=== PATIENT | male | born 1965 | race Two or more races ===

== ENCOUNTER 2022-08-17 03:21 | Emergency (ER) | payer BC, SELFPAY ==
--- NOTE | ~2022-08-17 | CT_ITS ---
EXAMINATION: CT CHEST WITHOUT CONTRAST CLINICAL INFORMATION: Chest pain. Question infiltrate. COMPARISON: Chest radiograph 08/17/2022. TECHNIQUE: Multidetector volumetric CT imaging of the chest was done. Axial MIP volume rendering provided. Sagittal and coronal reformatted images were obtained. This CT examination was performed using dose optimization techniques as appropriate, variously including the following: *Automated exposure control *Adjustment of mA and/or kV according to patient size (this includes techniques or standardized protocols for targeted exams where dose is matched to indication/reason for exam; i.e. extremities or head) *Use of iterative reconstruction technique DLP: 400 mGy-cm FINDINGS: Lungs and pleura: No focal pulmonary consolidation. No effusions or pneumothoraces. *3 mm noncalcified subpleural nodule within the peripheral left lung base (series 7 image 306) unchanged compared with 01/21/2019. *2 mm subpleural noncalcified pulmonary nodule peripheral left lung base (series 7 image image 285) unchanged compared with 01/21/2019. Per the Fleischner Society criteria, the above pulmonary nodules are benign in appearance and do not warrant additional imaging follow-up. No endobronchial lesions or peribronchial wall thickening noted. Mediastinum: The thyroid is partially included in the image [id number] and is normal in appearance. No lymphadenopathy. Normal caliber and contour of the thoracic aorta. Normal heart size. No pericardial thickening or pericardial fluid collections. CHEST WALL: No axillary lymphadenopathy. Internally visualized abdominal structures: Minimal reticulation of the small bowel mesenteric fat is present at the root of the small bowel mesentery. (Series 3 image 72). Scattered normal-sized mesenteric lymph nodes are present in the same region. The adrenal glands are normal in appearance. A 1 mm punctate calcification is present in the inferior right renal pelvis (series 3 image 74). A 1 mm punctate calcification is present in the interpolar section of the right kidney (series 3 image 69). Osseous structures: Moderate convex rightward curvature of the midthoracic spine is present. Multilevel confluent bridging endplate osteophytosis of the thoracic spine consistent with DISH is present. CT/CT chest wo IV con IMPRESSION: 1. Clear lungs. No focal pulmonary consolidation. No pleural effusions or pneumothoraces. 2. Minimal reticulation of the small bowel mesenteric fat with scattered normal-sized mesenteric lymph nodes in the same region. 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 3. Two punctate 1 mm nonobstructing calculi within the right kidney. 4. Moderate convex rightward curvature of the midthoracic spine. 5. Multilevel confluent bridging endplate osteophytosis of the thoracic spine consistent with DISH.
--- NOTE | ~2022-08-17 | XR_ITS ---
EXAMINATION: XR CHEST CLINICAL INFORMATION: Difficulty breathing COMPARISON: 12/31/2009 TECHNIQUE: Frontal view of the chest was obtained. FINDINGS: Lung volumes are symmetric. Mild opacity is noted at the medial right lung base. No evidence of pneumothorax, pleural effusion, or pulmonary edema. The cardiomediastinal contour is unremarkable. Redemonstrated dextroscoliosis of the lower thoracic spine. XR/XR chest 1V IMPRESSION: Mild medial right basilar opacity concerning for developing consolidation in the proper clinical setting. Radiographic followup after treatment/resolution of symptoms is recommended.
[2022-08-17 03:41] VITALS: BP 141/92; PULSE 63; RESP 20; TEMP 36.2; O2SAT 98; BMI 31.1
[2022-08-17 04:21] VITALS: BP 145/87; PULSE 65; RESP 17; TEMP 37; O2SAT 97
[2022-08-17 04:59] LABS: Influenza A PCR NEGATIVE (Negative); Influenza B PCR NEGATIVE (Negative); Resp Syncy Virus RNA Qual PCR NEGATIVE (Negative); SARS COV2 PCR INHOUSE NEGATIVE (Negative)
--- NOTE | 2022-08-17 05:11 | ECG_ITS ---
Test Reason : sob Blood Pressure : / mmHG Vent. Rate : 056 BPM Atrial Rate : 056 BPM P-R Int : 156 ms QRS Dur : 088 ms QT Int : 404 ms P-R-T Axes : 018 000 -01 degrees QTc Int : 389 ms Sinus bradycardia Minimal voltage criteria for LVH, may be normal variant ( R in aVL ) Borderline ECG No previous ECGs available Referred By: Neelam Ramos Electronically Signed By:Adalid Durham
[2022-08-17 05:34] LABS: Basophils Percent Auto 0.7 % (0-2); Eosinophils Absolute Auto 0.1 X10*3/uL (0.0-0.4); Eosinophils Percent Auto 2.2 % (0-4); Hematocrit 40.4 % (42.0-52.0); Hemoglobin 13.6 g/dl (14.0-18.0); Imm Gran Abs Auto 0.01 X10*3/uL (0.00-0.03); Imm Gran Pct Auto 0.2 % (0.0-0.4); Lymphocytes Absolute Auto 1.1 X10*3/uL (1.2-4.9); Lymphocytes Percent Auto 19.8 % (20-40); MANUAL DIFF FLAG NO; Mean Corpuscular HGB Conc 33.7 g/dl (31.0-36.0); Mean Corpuscular Hemoglobin 29.2 pg (27.0-33.0); Mean Corpuscular Volume 86.9 fL (80.0-98.0); Mean Platelet Volume 10.2 fL (9.4-12.4); Monocytes Absolute Auto 0.3 X10*3/uL (0.1-1.2); Neutrophils Absolute Auto 3.8 x10*3/uL (2.0-8.3); Neutrophils Percent Auto 71.1 % (45-73); Platelet Count 200 X10*3/uL (160-400); Red Blood Count 4.65 X10*6/uL (4.60-5.80); Red Cell Distribution Width 12.3 % (11.0-16.0); White Blood Count 5.4 X10*3/uL (4.8-10.8)
[2022-08-17 05:53] LABS: Alanine Aminotransferase 39 U/L (0-40); Alkaline Phosphatase 59 U/L (39-117); Anion Gap 10 (12-20); Aspartate Amino Transferase 30 U/L (5-37); Bilirubin Total 0.5 mg/dL (0.0-1.0); Blood Urea Nitrogen 18 mg/dL (9-16); Calcium 9.1 mg/dL (8.4-10.2); Carbon Dioxide 28 mmol/L (22-29); Chloride 104 mmol/L (96-108); Estimated Glomerular Filt Rate > 60; Glucose Random 116 mg/dL (60-115); Potassium 4.6 mmol/L (3.3-5.1); Sodium 137 mmol/L (135-145); Total Protein 6.5 g/dL (6.5-8.0)
--- NOTE | 2022-08-17 06:10 | ED.SOB ---
HPI - SOB/Dyspnea General Chief Complaint: Dyspnea Stated Complaint: difficulty breathing Time Seen by Provider: 08/17/22 04:08 Source: patient, family and per diem interpreter Mode of arrival: ambulatory History of Present Illness HPI Narrative: 57-year-old male without significant past medical history presents with onset of difficulty breathing and chest tightness and reports to sick contact as his daughter has the flu. Otherwise, he also reports headache dry cough but denies any GI or symptoms. Related Data Allergies Allergy/AdvReac Type Severity Reaction Status Date / Time rice Allergy Intermediate RASH Unverified 06/03/20 15:19 SUN Allergy Intermediate RASH Uncoded 06/03/20 15:19 CT dye Allergy Unknown oral Uncoded 01/23/19 00:00 swelling seasonal Allergy Unknown Uncoded 01/23/19 00:00 Review of Systems Review of Systems: Pertinent positives and negatives as stated in HPI 10 point review of systems is otherwise negative. PMFSH Past Medical History Source: nursing notes reviewed Social History Social History Advance Directives: No Physical Exam Vital Signs: Vital Signs: Last Vital Signs Temp 98.6 F 08/17/22 04:21 Pulse 65 08/17/22 04:21 Resp 17 08/17/22 04:21 BP 145/87 H 08/17/22 04:21 Pulse Ox 97 08/17/22 04:21 O2 Del Method 08/17/22 04:21 BMI result Body Mass Index 31.1 VITAL SIGNS: Reviewed. GENERAL: Well developed, well nourished, in no acute distress. HEAD: Normocephalic/atraumatic EYES: PERRLA, EOMI EARS: Ext canals without abnormality, TMs non-bulging and non-erythematous NOSE: Nares patent bilateral OROPHARYNX: no oral lesions noted, posterior pharynx clear and non-erythematous without noted tonsillar enlargement/erythema/exudates NECK: Supple, no adenopathy LUNGS: Normal breath sounds. No adventitious sounds or accessory muscle use. SpO2<97> CARDIOVASCULAR: Regular rate and rhythm without noted murmurs ABDOMEN: Soft, non-tender, non-distended with bowel sounds. MUSCULOSKELETAL: No tenderness, deformities, or effusions noted on gross inspection. EXTREMITIES: No cyanosis, clubbing or edema. SKIN: Inspection of the skin reveals no rashes NEUROLOGIC: Alert and oriented x 4. Strength and sensation to light touch were grossly intact x 4. Course Course Course Narrative: 57-year-old male with history and clinical presentation most consistent with viral syndrome, however viral testing is overwhelmingly negative but on review of remaining investigations there are no acute findings other than chest x-ray describes an infiltrate for which patient is not febrile nor is there evidence of leukocytosis. Will proceed with CT scan, otherwise cardiac investigations are negative at this time. Sign out to Dr Juarez. MDM - SOB/Dyspnea Lab Data Result diagrams: 08/17/22 05:29 08/17/22 05:29 Labs: Lab Results 08/17/22 08/17/22 08/17/22 Range/Units 04:18 05:29 05:29 WBC 5.4 (4.8-10.8) X10*3/uL RBC 4.65 (4.60-5.80) X10*6/uL Hgb 13.6 L (14.0-18.0) g/dl Hct 40.4 L (42.0-52.0) % MCV 86.9 (80.0-98.0) fL MCH 29.2 (27.0-33.0) pg MCHC 33.7 (31.0-36.0) g/dl RDW 12.3 (11.0-16.0) % Plt Count 200 (160-400) X10*3/uL MPV 10.2 (9.4-12.4) fL Immature Gran % (Auto) 0.2 (0.0-0.4) % Neut % (Auto) 71.1 (45-73) % Lymph % (Auto) 19.8 L (20-40) % [place] % (Auto) 6.0 (2-11) % Eos % (Auto) 2.2 (0-4) % Baso % (Auto) 0.7 (0-2) % Lymph # (Auto) 1.1 L (1.2-4.9) X10*3/uL [place] # (Auto) 0.3 (0.1-1.2) X10*3/uL Eos # (Auto) 0.1 (0.0-0.4) X10*3/uL Baso # (Auto) 0.0 (0.0-0.2) X10*3/uL Abs Immat Gran (auto) 0.01 (0.00-0.03) X10*3/uL Absolute Neuts (auto) 3.8 (2.0-8.3) x10*3/uL Absolute Nucleated RBC 0.000 (0.0-0.012) X10*3/uL Nucleated RBC % (auto) 0.0 (0.0-0.2) /100WBC Sodium 137 (135-145) mmol/L Potassium 4.6 (3.3-5.1) mmol/L Chloride 104 (96-108) mmol/L Carbon Dioxide 28 (22-29) mmol/L Anion Gap 10 L (12-20) BUN 18 H (9-16) mg/dL Creatinine 1.06 (0.5-1.4) mg/dL Estim Creat Clear Calc 84.0 Estimated GFR > 60 Random Glucose 116 H (60-115) mg/dL Lactic Acid (0.5-2.0) mmol/L Calcium 9.1 (8.4-10.2) mg/dL Total Bilirubin 0.5 (0.0-1.0) mg/dL AST 30 (5-37) U/L ALT 39 (0-40) U/L Alkaline Phosphatase 59 (39-117) U/L Troponin I High Sens (<3.5-35.0) ng/L Total Protein 6.5 (6.5-8.0) g/dL Albumin 4.0 (3.5-5.0) g/dL Influenza Type A (PCR) NEGATIVE (Negative) Influenza Type B (PCR) NEGATIVE (Negative) RSV RNA Qual (PCR) NEGATIVE (Negative) SARS-CoV-2 RNA (RT-PCR) NEGATIVE (Negative) 08/17/22 08/17/22 Range/Units 05:29 05:29 WBC (4.8-10.8) X10*3/uL RBC (4.60-5.80) X10*6/uL Hgb (14.0-18.0) g/dl Hct (42.0-52.0) % MCV (80.0-98.0) fL MCH (27.0-33.0) pg MCHC (31.0-36.0) g/dl RDW (11.0-16.0) % Plt Count (160-400) X10*3/uL MPV (9.4-12.4) fL Immature Gran % (Auto) (0.0-0.4) % Neut % (Auto) (45-73) % Lymph % (Auto) (20-40) % [place] % (Auto) (2-11) % Eos % (Auto) (0-4) % Baso % (Auto) (0-2) % Lymph # (Auto) (1.2-4.9) X10*3/uL [place] # (Auto) (0.1-1.2) X10*3/uL Eos # (Auto) (0.0-0.4) X10*3/uL Baso # (Auto) (0.0-0.2) X10*3/uL Abs Immat Gran (auto) (0.00-0.03) X10*3/uL Absolute Neuts (auto) (2.0-8.3) x10*3/uL Absolute Nucleated RBC (0.0-0.012) X10*3/uL Nucleated RBC % (auto) (0.0-0.2) /100WBC Sodium (135-145) mmol/L Potassium (3.3-5.1) mmol/L Chloride (96-108) mmol/L Carbon Dioxide (22-29) mmol/L Anion Gap (12-20) BUN (9-16) mg/dL Creatinine (0.5-1.4) mg/dL Estim Creat Clear Calc Estimated GFR Random Glucose (60-115) mg/dL Lactic Acid 1.0 (0.5-2.0) mmol/L Calcium (8.4-10.2) mg/dL Total Bilirubin (0.0-1.0) mg/dL AST (5-37) U/L ALT (0-40) U/L Alkaline Phosphatase (39-117) U/L Troponin I High Sens < 3.5 (<3.5-35.0) ng/L Total Protein (6.5-8.0) g/dL Albumin (3.5-5.0) g/dL Influenza Type A (PCR) (Negative) Influenza Type B (PCR) (Negative) RSV RNA Qual (PCR) (Negative) SARS-CoV-2 RNA (RT-PCR) (Negative) ECG Data Attestation: I personally reviewed and interpreted this ECG as follows: Prior ECG tracings: not available for review Interpretation: Sinus bradycardia, HR-56, no STEMI, MS/QRS/QTC is within normal limits. Discharge Plan Discharge Clinical Impression: Viral syndrome Patient Disposition: Home, Self-Care Instructions: Viral Syndrome (ED) Additional Instructions: 1. Recomendar Tylenol/ibuprofeno de venta ban seg?n sea necesario para анна corporales, анна de karlene, temperaturas superiores a 100.4. Aumente la cantidad de agua que nila. 2. Seguimiento con el proveedor de atenci?n primaria en los pr?ximos 1 a 2 d?as para la reevaluaci?n del manejo ambulatorio adicional. Regrese a la stu de emergencias si los s?ntomas empeoran. Print Language: Maltese
[2022-08-17 06:28] LABS: Troponin-I High Sensitivity < 3.5 ng/L (<3.5-35.0)
[2022-08-17 06:55] VITALS: BP 126/67; PULSE 60; RESP 17; TEMP 36.7; O2SAT 99
[2022-08-17] MEDS: Ibuprofen 400 MG TABLET PO (08:05)
[2022-08-17] MEDS: Acetaminophen 325 MG TABLET 975 MG PO (08:06)
== END 2022-08-17 08:35 | disposition home or self-care (01) ==
PROVIDERS: Student in an Organized Health Care Education/Training Program; Emergency Provider Emergency Medicine
DX: B34.9 Viral infection, unspecified (principal); R06.00 Dyspnea, unspecified; R91.8 Other nonspecific abnormal finding of lung field; Z20.822 Contact with and (suspected) exposure to COVID-19
CPT/HCPCS: 0241U; 36415; 71045; 71250; 80053; 83605; 84484; 85025; 87040; 93005; 99284

== ENCOUNTER 2024-05-07 10:57 | Emergency (ER) | payer BC, SELFPAY ==
--- NOTE | 2024-05-07 11:17 | ED_ITS ---
HPI - General Adult General Chief complaint: General Medical Stated complaint: mouth sores Time Seen by Provider: 05/07/24 11:28 Source: patient, RN notes reviewed and old records reviewed Mode of arrival: ambulatory Limitations: no limitations History of Present Illness ED Provider: Esteban JUNG narrative: 58-year-old male presents for evaluation of sores on his lower lip. Patient reports he has a history of canker sores. He reports that he usually gets 1 or 2. He states for the last 4 days he has had multiple canker sores to his lower lip. He reports some swelling to the upper lip this morning which has since resolved He denies any known history of herpes simplex virus Denies any new medications with the exception of Orajel he has been applying to the ulcers for the last few days Related Data Previous Rx's ?Medication ?Instructions ?Recorded valacyclovir 1 gram tablet 1,000 mg PO TID #21 tabs 05/07/24 Allergies Allergy/AdvReac Type Severity Reaction Status Date / Time SUN Allergy Intermediate RASH Uncoded 05/07/24 11:21 CT dye Allergy Unknown oral Uncoded 05/07/24 11:21 swelling seasonal Allergy Unknown Runny Nose Uncoded 05/07/24 11:21 Review of Systems 2 Constitutional: Constitutional: Denies body ache(s), Denies chills and Denies fever(s) Eyes: Eyes: Denies blurry vision ENT: Denies lip swelling, Reports mouth lesions and Reports mouth pain Cardiovascular: Cardiovascular: Denies chest pain and Denies chest pain at rest Respiratory: Respiratory: Denies cough Gastrointestinal: Gastrointestinal: Denies abdominal pain, Denies nausea and Denies vomiting Musculoskeletal: Musculoskeletal: Denies back pain Integumentary/Breasts: Skin/Breast: Denies rash Psychiatric: Psychiatric: Denies anxiety Allergic/Immunologic: Allergic/Immunologic: Denies lip swelling PMFSH Social History Social History Alcohol intake: never Advance Directives: No Do you have a plan to hurt others: No Plan Physical Exam ED Vital Signs: Vital Signs - 24 hr 05/07/24 11:19 Temperature 98.1 F Pulse Rate 69 Respiratory Rate 18 Blood Pressure 152/100 H Pulse Oximetry 98 Oxygen Delivery Method Room Air BMI result Body Mass Index 29.6 Const General: healthy appearing, comfortable, no acute distress, alert and awake Nutritional Appearance: well nourished Orientation/consciousness: patient oriented x3 HENMT Other: Patient has numerous small ulcers on an erythematous base to the inside of the lower lip. No significant edema. Head: Yes normocephalic and Yes atraumatic Eyes Eyelids: Yes eyelids normal Conjunctivae: conjunctivae normal Sclerae: sclerae normal Corneas: corneas normal Pupils: Equal, round and reactive pupils present EOM: EOMs intact bilaterally Neck Neck: Yes full ROM Resp Effort & Inspection: normal respiratory effort, able to speak in complete sentences and not labored Skin General skin exam: elasticity normal Neuro General: patient oriented x3 Cranial nerves: Yes Equal, round and reactive pupils present and Yes Bilaterally intact EOM present Cognition (Neuro): normal cognition Extrem Other: Moving all extremities well without any obvious deformities Medical Decision Making Medical Decision Making [facility] Narrative: 58-year-old male presents for evaluation of sores in his mouth that are consistent with canker sore/aphthous ulcers. He denies any history of herpes simplex virus. He has no new medications you suggest Aquino-James syndrome. Plan to treat with valacyclovir and symptomatic care. Differential Diagnosis Differential Diagnoses: The differential diagnosis associated with the presentation includes Canker sore Herpes simplex virus Aphthous ulcer Oral lesion Discharge Plan Discharge Clinical Impression: Aphthous ulcer of mouth Patient Disposition: Home, Self-Care Instructions: Canker Sores (ED) Additional Instructions: Take the valacyclovir 3 times daily for 1 week. 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
[2024-05-07 11:19] VITALS: BP 152/100; PULSE 69; RESP 18; TEMP 36.7; O2SAT 98; BMI 29.6
[2024-05-07 11:33] VITALS: BP 0/0; PULSE 0; RESP 0; TEMP -17.7; TEMP 0; O2SAT 0
== END 2024-05-07 11:34 | disposition home or self-care (01) ==
PROVIDERS: Emergency Provider Emergency Medicine; PCP Nurse Practitioner Family
DX: K12.0 Recurrent oral aphthae (principal)
CPT/HCPCS: 99282; 99283

== ENCOUNTER 2024-08-22 10:13 | Day surgery (SDC) | payer BC, SELFPAY ==
[2024-08-20 14:00] VITALS: BMI 29.5
--- NOTE | 2024-08-21 09:46 | HO.ANESPROP2 ---
Documented by User: Julianna Shanks NP 08/21/24 09:46 HPI - Anesthesia Eval Consult details Narrative: 59yo M for Colonoscopy [facility] Past Medical History Medical History Depression Arthritis GERD (gastroesophageal reflux disease) Surgical History Surgical History Hx of umbilical hernia repair H/O colonoscopy Social History Social History Are you a primary school child care attendant to a significant other at home: No Do you presently have visiting nurse or other home services: No Alcohol intake: never Patient Tobacco Use Status: Former Tobacco user Meds Allergies Allergy/AdvReac Type Severity Reaction Status Date / Time Iodinated Contrast Media Allergy Intermediate oral Verified 08/22/24 10:24 [IV Contrast Dye] swelling Seasonal Allergies Allergy Intermediate Runny Nose Verified 08/22/24 10:24 SUN Allergy Intermediate RASH Uncoded 08/22/24 10:24 Home Medications ?Medication ?Instructions ?Recorded ?Confirmed ?Last Taken ?Type fluoxetine 20 mg capsule PO DAILY 08/20/24 08/20/24 Unknown History meloxicam 15 mg tablet 15 mg DAILY 08/20/24 08/20/24 08/18/24 History omeprazole 20 mg capsule,delayed 20 mg PO DAILY 08/20/24 08/20/24 Unknown History release Exam Height,Weight and Vital Signs: Height 5 ft 10.5 in Weight 94.517 kg Assessment and Plan Assessment Anesthesia Assessment: Chart Reviewed Documented by User: Neelam Craig MD 08/22/24 10:45 [facility] Past Medical History Medical History Depression Arthritis GERD (gastroesophageal reflux disease) Surgical History Surgical History Hx of umbilical hernia repair H/O colonoscopy History of Problems with Anesthesia: No Social History Social History Are you a primary school child care attendant to a significant other at home: No Do you presently have visiting nurse or other home services: No Alcohol intake: never Patient Tobacco Use Status: Former Tobacco user Meds Allergies Allergy/AdvReac Type Severity Reaction Status Date / Time Iodinated Contrast Media Allergy Intermediate oral Verified 08/22/24 10:24 [IV Contrast Dye] swelling Seasonal Allergies Allergy Intermediate Runny Nose Verified 08/22/24 10:24 SUN Allergy Intermediate RASH Uncoded 08/22/24 10:24 Home Medications ?Medication ?Instructions ?Recorded ?Confirmed ?Last Taken ?Type fluoxetine 20 mg capsule PO DAILY 08/20/24 08/20/24 Unknown History meloxicam 15 mg tablet 15 mg DAILY 08/20/24 08/20/24 08/18/24 History omeprazole 20 mg capsule,delayed 20 mg PO DAILY 08/20/24 08/20/24 Unknown History release Exam Airway Mallampati Class: II TM Dist: >3cm Neck ROM: Full Loose/Missing/Broken Teeth: No Heart: RRR Lungs: CTA Assessment and Plan Assessment Anesthesia Assessment: Anesthesia Plan Discussed Final Anesthetic Review History of Problems with Anesthesia: No NPO: Yes ASA Class: II Final Preanesthetic Review: Meds/Allgs Chart Reviewed, Consent Obtained/Reviewed and Anes Risks/Benef Reviewed Patient Risk: Low Procedure Risk: Low Anesthetic Plan Anesthetic Plan: MAC: Disposition: Standard PACU
[2024-08-22 10:22] VITALS: BMI 28.3
[2024-08-22] MEDS: Lactated Ringers 1,000 ML 100 ML IVCONT (10:27)
[2024-08-22 10:36] VITALS: BP 144/98; PULSE 95; RESP 18; TEMP 36.6; O2SAT 97
--- NOTE | 2024-08-22 10:40 | MHC.SHP ---
Pre-Procedural Eval Section A - 24 Hr Update-Section A only Date of Service: 08/22/24 The patient is an INPATIENT: Yes Changes since office visit: No Cold of Flu in the past 2 weeks, No New Medical Problems, No Changes in Medication and No Patient answered all questions The patient has been examined within 24 hours of the surgical procedure. The History & Physical has been completed within 30 days and I have reviewed it.: Yes Section B - Complete if H&P > 30 days Chief Complaint: Encounter for screening for malignant neoplasm of Allergies: Allergies Allergy/AdvReac Type Severity Reaction Status Date / Time Iodinated Contrast Media Allergy Intermediate oral Verified 08/22/24 10:24 [IV Contrast Dye] swelling Seasonal Allergies Allergy Intermediate Runny Nose Verified 08/22/24 10:24 SUN Allergy Intermediate RASH Uncoded 08/22/24 10:24 Plan I have reviewed the history and physical and performed a pertinent physical examination on my patient. No changes have occurred unless specified. Time Spent With Patient Time: Total time managing care of this patient today ____ minutes.
[2024-08-22 11:14] VITALS: BP 120/80; PULSE 90; RESP 12; TEMP 36.3; O2SAT 97
[2024-08-22 11:29] VITALS: BP 125/93; PULSE 79; RESP 18; O2SAT 99
[2024-08-22 11:41] VITALS: BP 130/97; PULSE 74; RESP 16; TEMP 36.1; O2SAT 98
--- NOTE | 2024-08-22 11:41 | OP_ITS ---
DATE OF SERVICE: 08/22/2024 SURGEON: Aldo Mcmahon MD INDICATIONS: Colon cancer screening. PREOPERATIVE DIAGNOSIS: POSTOPERATIVE DIAGNOSIS: PROCEDURE PERFORMED: Colonoscopy to the terminal ileum. ESTIMATED BLOOD LOSS: COMPLICATIONS: ANESTHESIA: Monitored anesthesia care. ASSISTANTS: SPECIMENS: DESCRIPTION OF PROCEDURE: A history and physical was performed. The risks and benefits of the procedure were explained to the patient and informed consent was obtained. The patient was placed in the left lateral decubitus position. A digital rectal exam was performed and was found to be normal. The Olympus pediatric video colonoscope was introduced into the rectum and advanced to the cecum. The cecum was identified by transillumination, palpation, and identification of ileocecal valve. Examination was performed and the scope was removed. He tolerated the procedure well and was returned to recovery area in stable condition. FINDINGS: The terminal ileum was not examined. The visualized colonic mucosa was normal. The quality of the prep was good. No polyps were identified. Retroflexed examination showed some hypertrophic anal papillae and some small internal hemorrhoids. A few diverticula were seen in the sigmoid. IMPRESSION: Normal colonoscopy. RECOMMENDATIONS: 1. Follow up as needed. 2. Repeat colonoscopy is recommended in 10 years for average-risk individuals. MD KIRK Reyes/ERASMO / [id number]
== END 2024-08-22 12:00 | disposition home or self-care (01) ==
PROVIDERS: PCP Nurse Practitioner Family; Visit Provider Internal Medicine Gastroenterology
PROC: 0DJD8ZZ Inspection of Lower Intestinal Tract, Via Natural or Artificial Opening Endoscopic (ICD-10-PCS; CPT 45378; principal; 2024-08-22 13:20)
DX: Z12.11 Encounter for screening for malignant neoplasm of colon (principal); K57.30 Diverticulosis of large intestine without perforation or abscess without bleeding; K62.89 Other specified diseases of anus and rectum; K64.8 Other hemorrhoids; Z79.1 Long term (current) use of non-steroidal anti-inflammatories (NSAID)
CPT/HCPCS: 45378; J2003; J2704